=== PATIENT | female | born 1970 ===

== ENCOUNTER 2024-02-16 05:56 | Day surgery (SDC) | payer OTHER, SELFPAY ==
[2024-02-16] VITALS (15 sets, daily range): BP systolic 108–145; BP diastolic 64–85; BMI 32.2
[2024-02-16] MEDS: TRANSDERM-SCOP 1 PATCH TRANSDERM (06:51)
[2024-02-16] MEDS: Pyridium 200 MG PO (06:52)
[2024-02-16 07:03] LABS: Glucose - Point of Care 97 mg/dl (70-99)
[2024-02-16] MEDS: NORMOSOL-R 1000 IV (07:03)
[2024-02-16] MEDS: ZOFRAN 4 MG IV (08:23)
[2024-02-16 08:27] LABS: Glucose - Point of Care 123 mg/dl (70-99)
[2024-02-16] MEDS: COMPAZINE 5 MG IV (09:22)
== END 2024-02-16 12:35 | disposition home or self-care (01) ==
LOC: SDS 05:56
PROVIDERS: ATTENDING PHYSICIAN Urology
DX: N39.46 Mixed incontinence (principal); N30.10 Interstitial cystitis (chronic) without hematuria; N32.89 Other specified disorders of bladder
CPT/HCPCS: 57288; 52260; 52287; 82962; 93005; C1771; J0585

== ENCOUNTER 2025-06-13 06:19 | Day surgery (SDC) | payer OTHER, SELFPAY ==
--- NOTE | 2025-05-25 15:38 | PTCARENOTE ---
Patient took dose of Ozempic 05/24/25. Dr Barry notified.
Per Dr Barry 'patient should be informed that she is at a higher risk for aspiration for the procedure. If she still wishes to proceed then she must be on a clear liquid diet for 24hrs prior to day of surgery'.
Call to patient to discuss above and patient is concerned related to previous lung issues and history of nausea/vomiting.
Patient will call Dr Horner's office to reschedule. Vi from Dr Horner's office notified.
[2025-06-13] VITALS (7 sets, daily range): BP systolic 112–127; BP diastolic 68–84; BMI 30.8
[2025-06-13] MEDS: NORMOSOL-R/PLASMALYTE-A 1000 IV (09:18)
[2025-06-13 09:36] LABS: Glucose - Point of Care 103 mg/dl (70-99)
[2025-06-13 10:37] LABS: Glucose - Point of Care 112 mg/dl (70-99)
== END 2025-06-13 11:47 | disposition home or self-care (01) ==
LOC: SDS 06:19
PROVIDERS: ATTENDING PHYSICIAN Urology; FAMILY PHYSICIAN Internal Medicine
DX: N30.10 Interstitial cystitis (chronic) without hematuria (principal); N39.41 Urge incontinence; N32.89 Other specified disorders of bladder
CPT/HCPCS: 52287; 52260; 82962; 93005; J0585